=== PATIENT | male | born 1960 | race Asian ===

== ENCOUNTER 2018-01-01 11:23 | Day surgery (SDC) | payer OTHER ==
[2018-01-01] MEDS ORDERED: POLYMYXIN/BACITRACIN 1L IRRIG (17:55)
[2018-01-01] MEDS ORDERED: MIDAZOLAM 1 MG/ML 2 ML INJ (18:36)
[2018-01-01] MEDS ORDERED: ROPIVACAINE 0.5 % 30 ML VIAL (18:36)
[2018-01-01] MEDS ORDERED: oxyCODONE 5 MG TAB PO (19:30)
[2018-01-01] MEDS ORDERED: morphine 2 MG INJ IV (19:30)
[2018-01-01] MEDS ORDERED: ROCURONIUM 50 MG INJ (19:53)
[2018-01-01] MEDS ORDERED: CEFAZOLIN 1 GM INJ (19:53)
[2018-01-01] MEDS ORDERED: LIDOCAINE 100 MG SYRINGE (19:53)
[2018-01-01] MEDS ORDERED: SUGAMMADEX SODIUM 200 MG/2 ML VIAL IV (19:53)
[2018-01-01] MEDS ORDERED: SUCCINYLCHOLINE CHLORIDE 100 MG/5 ML SYG IV (19:53)
[2018-01-01] MEDS ORDERED: PROPOFOL 20 ML (19:53)
[2018-01-01] MEDS: POLYMYXIN/BACITRACIN 1L IRRIG IRR (20:14)
[2018-01-01] MEDS: NEOMYC/POLYMYX/BACIT 30 GM OINT (21:10)
[2018-01-01] MEDS ORDERED: DIPHENHYDRAMINE 50 MG INJ IV (21:30)
[2018-01-01] MEDS ORDERED: ALBUTEROL 0.083% (NEB) 2.5 MG/3 ML AMP HHN (21:30)
[2018-01-01] MEDS ORDERED: HYDROmorphONE (0.2 MG/ML) 10ML SYG IV ×2 (21:30)
[2018-01-01] MEDS ORDERED: FENTAnyl 50 MCG/ML VIAL IV ×2 (21:30)
[2018-01-01] MEDS ORDERED: METOCLOPRAMIDE 10 MG INJ IV (21:30)
[2018-01-01] MEDS: ONDANSETRON 4 MG INJ IV ×2 (21:31→21:37)
[2018-01-01] MEDS: MEPERIDINE 25 MG INJ IV (21:37)
[2018-01-01] MEDS: HYDROmorphONE (0.2 MG/ML) 10ML SYG IV ×2 (21:46→22:07)
[2018-01-01] MEDS ORDERED: KETOROLAC 15 MG INJ (22:22)
[2018-01-01] MEDS: KETOROLAC 15 MG INJ IV (22:23)
== END 2018-01-01 23:00 | disposition home or self-care (01) ==
LOC: REC 11:23 → SDS 11:23
DX: S82.841D Displaced bimalleolar fracture of right lower leg, subsequent encounter for closed fracture with routine healing (principal); X58.XXXD Exposure to other specified factors, subsequent encounter; E03.9 Hypothyroidism, unspecified; E78.5 Hyperlipidemia, unspecified; E66.9 Obesity, unspecified; Z68.29 Body mass index [BMI] 29.0-29.9, adult
CPT/HCPCS: 27814; 73610-RT; 82306